=== PATIENT | male | born 1965 | race Caucasian/White ===

== ENCOUNTER 2021-09-04 13:45 | Day surgery (SDC) | payer OTHER ==
--- NOTE | 2021-09-04 18:36 | XRAY ---
Indication: Left SI joint and left piriformis injections. Intraoperative fluoroscopy provided for 26 seconds. 3 digital spot image submitted for interpretation demonstrates posterior needle tip projecting over the inferior left SI joint. Second needle tip projects over the left piriformis muscle with small amount of contrast injected for needle tip placement. Correlate with intraoperative findings/report.
--- NOTE | 2021-09-05 09:37 | XRAY ---
26 seconds fluoroscopy time in surgery for injections of the left SI joint and the left piriformis muscle.
== END 2021-09-04 17:55 | disposition home or self-care (01) ==
LOC: SDC-PAIN 13:45
PROVIDERS: ATTEND Psychiatry & Neurology Pain Medicine
DX: M46.1 Sacroiliitis, not elsewhere classified (principal); M79.18 Myalgia, other site; I10 Essential (primary) hypertension; Z79.899 Other long term (current) drug therapy
CPT/HCPCS: 72202; 77002

== ENCOUNTER 2022-04-16 15:19 | Day surgery (SDC) | payer OTHER ==
[2022-04-16] MEDS ORDERED: Depo-Medrol 40 MG/ML IM ONE (15:20)
[2022-04-16] MEDS ORDERED: Xylocaine 1% Vial 30 ML PF IJ ONE (15:20)
[2022-04-16] MEDS ORDERED: BUPIVACAINE 0.5% VIAL IJ ONE (15:20)
[2022-04-16] MEDS ORDERED: Decadron 4 MG INJ IV ONE (15:20)
--- NOTE | 2022-04-16 19:59 | XRAY ---
Indication: Left SI joint and left piriformis injections. Intraoperative fluoroscopy provided for 27 seconds. 4 digital spot images obtained prone submitted for interpretation demonstrates posterior needle tip projecting over the left SI joint. Second needle tip projects over the left piriformis muscle with small amount of contrast injected for needle tip placement. Correlate with intraoperative findings/report.
--- NOTE | 2022-04-17 08:46 | XRAY ---
27 seconds of fluoroscopy was used in surgery for a left sacroiliac joint and left piriformis injection.
== END 2022-04-16 17:40 | disposition home or self-care (01) ==
LOC: SDC-PAIN 15:19
PROVIDERS: ATTEND Psychiatry & Neurology Pain Medicine
DX: M46.1 Sacroiliitis, not elsewhere classified (principal); M79.18 Myalgia, other site; Z79.899 Other long term (current) drug therapy
CPT/HCPCS: 27096; 72170; 77002; J1030; J1100; J2001; Q9966; G0260

== ENCOUNTER 2022-05-15 06:53 | Day surgery (SDC) | payer OTHER ==
[2022-05-15] MEDS ORDERED: Depo-Medrol 40 MG/ML IM ONE (06:54)
[2022-05-15] MEDS ORDERED: BUPIVACAINE 0.5% VIAL IJ ONE (06:54)
[2022-05-15] MEDS ORDERED: LIDOCAINE HCL 1% 50 MG/5 ML VL PF IJ ONE (06:54)
[2022-05-15] MEDS ORDERED: DIPRIVAN 200 MG/20 ML IV ONE (08:03)
--- NOTE | 2022-05-15 08:43 | XRAY ---
Indication: Left SI joint injection. Intraoperative fluoroscopy provided for 27 seconds. 3 digital spot images submitted for interpretation demonstrates 4 posterior needle tips projecting medial to the left SI joint. Correlate with intraoperative findings/report.
--- NOTE | 2022-05-15 09:05 | XRAY ---
27 seconds fluoroscopy time in surgery for injection of the left SI joint.
[2022-05-15] MEDS ORDERED: Lactated Ringers 1,000 ML IV ONE (10:28)
== END 2022-05-15 08:45 | disposition home or self-care (01) ==
LOC: SDC-PAIN 06:53
PROVIDERS: ATTEND Psychiatry & Neurology Pain Medicine
DX: M46.1 Sacroiliitis, not elsewhere classified (principal)
CPT/HCPCS: 64625; 72202; 77002; J1030; J2001; J2704

== ENCOUNTER 2024-08-08 13:10 | Emergency (ER) | payer OTHER ==
[2024-08-08 13:43] VITALS: RESP 18; TEMP 97.6; O2SAT 96
--- NOTE | 2024-08-08 13:48 | ERPHSYRPT ---
- History of Present Illness Time Seen by Provider: 08/08/24 13:47 Source: patient, family Exam Limitations: no limitations Patient Subjective Stated Complaint: Pt states "I was using a saw and it slipped and cut my fourth digit on my left hand." Triage Nursing Assessment: PT presented aelrt and oriented X 3, skin wpd. Pt ambualtes with an upright steady gait, able to speak in clear full sentences. PT has laceration noted through fingernail to second knuckle. Physician History: This is a 59-year-old white male patient who is using a variety saw at home and it slipped and cut his left fourth digit distally and anteriorly. Patient has no known drug allergies and he takes no medications chronically. His tetanus status is up-to-date. He has full function of his left fourth digit. Timing/Duration: today Quality: painful Severity: mild Location: hands (Left hand fourth digit) Associated Symptoms: denies symptoms Allergies/Adverse Reactions: No Known Drug Allergies Allergy (Verified 08/08/24 13:43) Hx Tetanus, Diphtheria Vaccination/Date Given: Yes Hx Influenza Vaccination/Date Given: No Hx Pneumococcal Vaccination/Date Given: No Immunizations Up to Date: No Travel Risk - International Travel Have you traveled outside of the country in past 3 weeks: No - Emerging Infectious Disease Are you exhibiting symptoms associated with any current EIDs: No - Review of Systems Constitutional: No Symptoms Eyes: No Symptoms Ears, Nose, & Throat: No Symptoms Respiratory: No Symptoms Cardiac: No Symptoms Abdominal/Gastrointestinal: No Symptoms Genitourinary Symptoms: No Symptoms Musculoskeletal: Injury (Left hand fourth digit) Skin: No Symptoms Neurological: No Symptoms Psychological: No Symptoms Endocrine: No Symptoms Hematologic/Lymphatic: No Symptoms Immunological/Allergic: No Symptoms All Other Systems: Reviewed and Negative - Past Medical History Pertinent Past Medical History: Yes Neurological History: No Pertinent History ENT History: No Pertinent History Cardiac History: No Pertinent History Respiratory History: No Pertinent History Endocrine Medical History: No Pertinent History Musculoskeletal History: No Pertinent History GI Medical History: No Pertinent History History: No Pertinent History Psycho-Social History: No Pertinent History Male Reproductive Disorders: No Pertinent History - Past Surgical History Past Surgical History: Yes Neuro Surgical History: No Pertinent History Cardiac: Cardiac Catheterization Respiratory: No Pertinent History Gastrointestinal: No Pertinent History Genitourinary: No Pertinent History Male Surgical History: Vasectomy Other Surgical History: cyst removed from back - Social History Smoking Status: Never smoker Exposure to second hand smoke: No Drug Use: none - Social Determinants of Health Will the patient participate in the screening: Declined to provide - Nursing Vital Signs Nursing Vital Signs: Initial Vital Signs Temperature 97.6 F 08/08/24 13:38 Pulse Rate 56 L 08/08/24 13:38 Respiratory Rate 18 08/08/24 13:38 Blood Pressure 100/59 08/08/24 13:38 O2 Sat by Pulse Oximetry 96 08/08/24 13:38 Pain Scale Pain Intensity 2 - Physical Exam General Appearance: no apparent distress, alert Eye Exam: PERRL/EOMI, eyes nml inspection Ears, Nose, Throat Exam: normal ENT inspection, moist mucous membranes Neck Exam: normal inspection, non-tender, supple, full range of motion Respiratory Exam: No chest tenderness, No respiratory distress Gastrointestinal/Abdomen Exam: No tenderness Rectal Exam: not done Back Exam: normal inspection, normal range of motion, No CVA tenderness, No vertebral tenderness Extremity Exam: normal range of motion, pelvis stable, lacerations (Left hand fourth digit dorsal aspect 2-1/2 cm laceration with half of the patient's nail loss. No foreign body. Appears to be down to the tuft), other (Neurovascularly intact. 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 No foreign body noted. It appears that the laceration is deep enough in the nailbed to have exposed the dorsal surface of the tuft) Irrigated: Yes Hibiclens Prep: Yes Anesthesia: local, 1% Lidocaine Volume Anesthetic (ccs): 5 Wound Repaired With: sutures Suture Size/Type: 3-0, prolene Number of Sutures: 3 Layer Closure?: No Sterile Dressing Applied?: Yes - Course Nursing assessment & vital signs reviewed: Yes Ordered Tests: Active Orders 24 hr Category Date Time Status HAND (MINIMUM 3 VIEWS) Stat Exams 08/08/24 14:12 Taken Medication Summary Discontinued Medications Generic Name Dose Route Start Last Admin Trade Name Stevie PRN Reason Stop Dose Admin Cephalexin HCl 500 mg 08/08/24 14:49 Cephalexin Mh500 Mg Capsule PO 08/08/24 14:50 STAT ONE Lidocaine HCl Confirm 08/08/24 14:10 Lidocaine Hcl 1% 20 Ml Mdv 20 Ml Ml Administered 08/08/24 14:11 Dose 1 ml .ROUTE .STK-MED ONE - Progress Progress: improved, pain not gone completely Progress Note: 08/08/24 14:29 By medical decision making in the assignment of low complexity to this patient's medical issue today is based on review of the patient's past medical history, review of the patient's medication list, review of the patient's drug allergy list, history present illness and physical findings on examination. The workup in this patient is x-ray of the patient's left hand and closure of the approximately 2-1/2 cm anterior skin laceration site. Differential diagnosis includes but is not limited to fracture dislocation tuft left fourth digit, partial nail loss left hand fourth digit 08/08/24 14:58 I interpreted the preliminary report of the patient's left hand x-ray. I do not see an acute fracture or dislocation. 08/08/24 15:01 Patient refuses to use any narcotic medication. If he needs something for pain he will use Tylenol and ibuprofen Counseled pt/family regarding: diagnosis, need for follow-up, rad results Medical Desision Making - Independent Historian Additional History obtained from: Spouse - Diagnostic Testing Diagnostic test were ordered, analyzed, and reviewed by me: Yes Radiological Interpretation: Interpreted by me, Teleradiologist Report - Risk of complications The pt has a mod risk of morbidity or mortality based on: Need for prescription drug management - Departure Departure Disposition: Home Clinical Impression: Nailbed laceration, finger, Finger laceration Condition: Stable Critical Care Time: No Referrals: CLEO ZACARIAS MD [Primary Care Provider] - Follow up/PCP as directed Additional Instructions: Keep the current pressure dressing in place. If you have an appointment to see the hand surgeon tomorrow, 08/09/2024, keep the pressure dressing in place until you are evaluated by them. If you do not have an appointment to see the hand surgeon until later in the week, remove the pressure dressing, rinse the site off daily thereafter with soapy water. Blot dry use a english division chair. After the site is dry reapply antibiotic ointment of choice and cover with nonstick dressing. Take your antibiotics as prescribed Prescriptions: Cephalexin Mh 500 mg [Keflex 500 mg] 500 mg PO TID #15 cap
[2024-08-08] MEDS ORDERED: XYLOCAINE 1% HCL 20 ML MDV ONE (14:10)
[2024-08-08] MEDS ORDERED: BACIGUENT PACKET ONE (15:01)
[2024-08-08] MEDS ORDERED: KEFLEX 500 MG ONE (15:01)
[2024-08-08] MEDS: KEFLEX 500 MG PO ONE (15:04)
[2024-08-08 15:05] VITALS: BP 115/66; PULSE 80
--- NOTE | 2024-08-08 15:13 | XRAY ---
Indication: 4th digit laceration. Comparison: None 3 view left hand demonstrates distal 4th finger bandage material. Otherwise no bony, articular, or soft tissue abnormalities.
[2024-08-08] MEDS ORDERED: NORCO 5/325 MG ONE (15:21)
[2024-08-08] MEDS: NORCO 5/325 MG PO ONE (15:24)
== END 2024-08-08 15:45 | disposition home or self-care (01) ==
LOC: ED 13:10
DX: S61.315A Laceration without foreign body of left ring finger with damage to nail, initial encounter (principal); W27.0XXA Contact with workbench tool, initial encounter; Z79.899 Other long term (current) drug therapy
CPT/HCPCS: 12001; 73130; 99283; A9270-GY